=== PATIENT | female | born 1970 | race Caucasian/White ===

== ENCOUNTER → 2020-09-13 | Outpatient (CLI) | payer BC ==
--- NOTE | 2020-09-13 14:35 | US ---
EXAMINATION TYPE: US pelvic complete DATE OF EXAM: 09/13/2020 COMPARISON: NONE CLINICAL HISTORY: N92.1 Irrgular cycle Menorrhgia. TECHNIQUE: . Transabdominal sonographic images of the pelvis were acquired. Date of LMP: August 2020 EXAM MEASUREMENTS: Uterus: 10.3 x 5.9 x 6.4 cm Endometrial Stripe: 0.7 cm Right Ovary: 1.9 x 1.3 x 1.8 cm Left Ovary: 3.2 x 3.3 x 1.9 cm 1. Uterus: Anteverted Myometrial cyst measuring 0.4 cm 2. Endometrium: wnl 3. Right Ovary: wnl 4. Left Ovary: Cyst measuring 2.2 x 1.4 x 2.2 cm 5. Bilateral Adnexa: wnl 6. Posterior cul-de-sac: wnl IMPRESSION: Myometrial cyst. Left ovarian cyst is likely functional in nature.
== END | disposition home or self-care (01) ==
LOC: RADUSWWP 13:46
PROVIDERS: ATTEND Obstetrics & Gynecology
DX: N83.202 Unspecified ovarian cyst, left side (principal)
CPT/HCPCS: 76856